=== PATIENT | female | born 1950 | race African-American/Black ===

== ENCOUNTER 2016-10-23 10:24 | Emergency (ER) | payer OTHER ==
[~2016-10-23] VITALS: Ht 149.9 cm; Wt 83.9 kg
[~2016-10-23 10:24] MED LIST: ALAVERT10 MG PO; ALBUTEROL 0.5ML IH; ALBUTEROL17 G1 IH; ATARAX PO; AUGMENTIN PO; AZITHROMYCIN250 MG PO; BACTRIM DS TABL1 TAB PO; BENADRILINA25 MG PO; BENADRYL PO; COMBIVENT INH14.7 GM INH; COMBIVENT U/D3 ML INH; COMBIVENT14.7 GM; CORTIZONE-1028 GM TP; COUGHTAB200 MG PO; DARVOCET-N 1001 TAB PO; DOXYCYCLINE PO; EPIPEN0.3 MG/0.1 IM; FAMVIR500 MG PO; FELDENE10 MG PO; FLEXERIL PO; FLEXERIL10 MG PO; FLONASE16 GM; HCTZ; HCTZ PO; HYDROCORTISONE15 G3 TOP; HYDROCORTISONE15 G3 TP; IBUPROFEN800 MG PO; KEFLEX PO; KEFLEX500 MG PO; LAMISIL AT TP; LIPITOR PO; LIPITOR20 MG PO; MAXZIDE-25 MG T1 TAB PO; MICRO-K10 MEQ PO; NEXIUM20 MG PO; NITROGLYGERIN0.4 MG SL; NITROGYLCERIN SUBLINGUAL; NORCO 5/325 TAB1 TAB PO; NORVASC PO; NORVASC10 MG PO; OMEPRAZOLE40 MG PO; ORUDIS75 M1 PO; PEPCID PO; PREDNISONE PO; PREDNISONE10 MG/DOSE PO; ROBITUSSIN A-C S5 ML PO; ROBITUSSIN DM T10 ML PO; TAMIFLU75 M1 PO; TESSALON200 MG PO; TYLENOL325 M1 PO; TYLOX 5/500 CAP1 CAP PO; VICODIN 5/1 TAB 5/50 PO; VICODIN 5/500 T1 TAB PO; WATER PILL; ZANTAC; ZITHROMAX PO; ZITHROMAX1 G/PKT PO; ZOFRAN PO; ZOFRAN2 MG/M1 IM; ZOLOFT; ZOLOFT PO; ZOLOFT50 MG PO
== END 2016-10-23 12:00 | disposition home or self-care (01) ==
LOC: CED 10:24 → CFTX 11:53
DX: N61.0 Mastitis without abscess (principal); B37.89 Other sites of candidiasis; I10 Essential (primary) hypertension; J44.9 Chronic obstructive pulmonary disease, unspecified; K21.9 Gastro-esophageal reflux disease without esophagitis; Z88.5 Allergy status to narcotic agent; Z91.030 Bee allergy status
CPT/HCPCS: 99283

== ENCOUNTER 2016-11-09 09:25 | Emergency (ER) | payer OTHER ==
[~2016-11-09] VITALS: Ht 149.9 cm; Wt 83.9 kg
--- NOTE | ~2016-11-09 | CR126 ---
[facility] A Service of [facility] & [facility] RADIOLOGY TEXT RESULTS PATIENT: CHER SALAS LOCATION: [facility] : 54 UNIT #: [id number] AGE: [address]: Shu Solano SEX: F ORDER DR: [id number] [facility] [address] [place], [place] [address] [id number] MR#: [id number] #: [id number] NAME: CHER SALAS : 1950 SEX: F STUDY DATE/TIME: 11/09/2016 UNIT: [facility] ROOM: STUDY DESCRIPTION: CR Foot Complete Min 3 View Lt Attending Physician: Shu Solano Pa-C Ordering Physician: Shu Solano Pa-C Primary Care Physician: [facility]. MEDICAL IMAGING REPORT This report is preliminary unless electronic signature is present EXAM Left foot 3 views 11/09/2016 1117 hours HISTORY 2-week history of pain and swelling across the top of foot. No known injury. 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 This is minimally progressive from 2012. There is no fracture or dislocation. Moderate plantar calcaneal spur is again noted. IMPRESSION No acute fracture or dislocation. Degenerative change first metatarsophalangeal joint. Minimally increased from 02/20/2013. Plantar calcaneal spurring again noted. Dictated by... Mai Cisneros M.D. THIS IS AN ELECTRONICALLY VERIFIED REPORT Mai Cisneros M.D. at 11/09/2016 7:05 PM BRANDON/luca TD: 11/09/2016 16:03 JOB #: [id number] MEDICAL IMAGING REPORT Page 1 of 1 COPY
== END 2016-11-09 12:31 | disposition home or self-care (01) ==
LOC: CED 09:25 → CFTX 09:25
DX: M79.672 Pain in left foot (principal); E78.5 Hyperlipidemia, unspecified; I10 Essential (primary) hypertension; J44.9 Chronic obstructive pulmonary disease, unspecified; Z90.710 Acquired absence of both cervix and uterus; Z88.5 Allergy status to narcotic agent; Z91.030 Bee allergy status
CPT/HCPCS: 29540; 73630; 99283